=== PATIENT | female | born 1975 | race Caucasian/White ===

== ENCOUNTER 2016-04-11 22:42 | Emergency (ER) | payer BC ==
[~2016-04-11] VITALS: Ht 160 cm; Wt 124.0 kg
[2016-04-11 22:46] VITALS: BP 180/95; PULSE 98; RESP 14; TEMP 98.5; O2SAT 95
[2016-04-11 23:31] LABS: BLOOD, URINE LARGE (NEG); GLUCOSE,URINE NEG (NEG); KETONE, URINE NEG (NEG); NITRITE,URINE NEG (NEG); PH, URINE 5.5 (5.0-8.5); RENAL EPITHELIAL CELLS 6 /hpf; SQUAMOUS EPITHELIAL CELL URINE 1 /hpf (0-5); URINE COLOR YELLOW (YELLW/STRAW)
[2016-04-11 23:36] LABS: COMMENT (UR) CULTURE INDICATED; CULTURE IF INDICATED CULTURE INDICATED
[2016-04-11] MEDS ORDERED: CIPR-9 PO (23:52)
[2016-04-11] MEDS ORDERED: PYRI200T4 PO (23:52)
--- NOTE | 2016-04-11 23:58 | PD ---
HPI Chief Complaint: Complaint Time Seen by Provider: 23:52 Travel History International Travel<30 days: No Contact w/Intl Traveler<30days: No Traveled to known affect area: No History of Present Illness HPI 40-year-old white female presents to the department with a one-day history of increasing frequency and dysuria. She has some lower bladder pressure. She denies any fever or chills. No nausea vomiting. No back pain. No vaginal complaints. She does make note that she had a small amount of blood when she wiped. [facility] Past Medical History Medical History: Denies Significant Hx Tetanus Vaccination: < 5 Years ?: Not Past Surgical History Surgical History: No Previous Surgery Social History Alcohol Use: Yes Tobacco Use: No Allergies-Medications (Allergen,Severity, Reaction): Coded Allergies: Bactrim (Verified Allergy, Mild, HIVES, 04/11/16) Codeine (Verified Allergy, Mild, HIVES, 04/11/16) Keflex (Verified Allergy, Mild, HIVES, 04/11/16) Minocycline (Verified Allergy, Mild, HIVES, 04/11/16) Sulfa (Verified Allergy, Mild, HIVES, 04/11/16) Tetracycline (Verified Allergy, Mild, HIVES, 04/11/16) Reported Meds & Prescriptions Reported Meds & Active Scripts Active No Active Prescriptions or Reported Medications Review of Systems Except as stated in HPI: all other systems reviewed are Neg Physical Exam Narrative GENERAL: Well-developed, well-nourished in no acute distress. Nontoxic appearing. HEAD: Normocephalic, atraumatic. EYES: Pupils equal round and reactive. Extraocular motions intact. No scleral icterus. No injection or drainage. ENT: TMs clear without erythema. The external auditory canals clear. Nose: clear . Posterior pharynx is pink and moist. No tonsillar edema or exudate. Uvula midline. Airway patent. NECK: Trachea midline.Supple, nontender, moves head freely. No central bony tenderness or spasm. CARDIOVASCULAR: Regular rate and rhythm without murmurs, gallops, or rubs. RESPIRATORY: Clear to auscultation. Breath sounds equal bilaterally. No wheezes , rales, or rhonchi. GASTROINTESTINAL: Abdomen soft, non-tender, nondistended. No hepato-splenomegaly , or palpable masses. No guarding. EXTREMITIES: No clubbing, cyanosis, or edema. No joint tenderness, effusion, or edema noted. BACK: Nontender without deformity or crepitance. No flank tenderness. Data Data Last Documented VS Vital Signs Date Time Temp Pulse Resp B/P Pulse Ox O2 Delivery O2 Flow Rate FiO2 04/11/16 22:46 98.5 98 14 180/95 95 Room Air Orders Urinalysis - C+S If Indicated (04/11/16 22:54) Urine Culture (04/11/16 23:01) Ciprofloxacin (Cipro) (04/12/16 00:00) Phenazopyridine (Pyridium) (04/12/16 00:00) Labs Laboratory Tests Test 04/11/16 23:01 Urine Color YELLOW Urine Turbidity HAZY Urine pH 5.5 Urine Specific Cash 1.017 Urine Protein 30 mg/dL Urine Glucose (UA) NEG mg/dL Urine Ketones NEG mg/dL Urine Occult Blood LARGE Urine Nitrite NEG Urine Bilirubin NEG Urine Urobilinogen LESS THAN 2.0 MG/DL Urine Leukocyte Esterase LARGE Urine RBC /hpf Urine WBC /hpf Urine Squamous Epithelial 1 /hpf Cells Urine Renal Epithelial Cells 6 /hpf Microscopic Urinalysis Comment CULTURE INDICATED MDM Medical Decision Making Medical Screen Exam Complete: Yes Emergency Medical Condition: Yes Medical Record Reviewed: Yes Interpretation(s) Laboratory Tests Test 04/11/16 23:01 Urine Color YELLOW Urine Turbidity HAZY Urine pH 5.5 Urine Specific Cash 1.017 Urine Protein 30 mg/dL Urine Glucose (UA) NEG mg/dL Urine Ketones NEG mg/dL Urine Occult Blood LARGE Urine Nitrite NEG Urine Bilirubin NEG Urine Urobilinogen LESS THAN 2.0 MG/DL Urine Leukocyte Esterase LARGE Urine RBC /hpf Urine WBC /hpf Urine Squamous Epithelial 1 /hpf Cells Urine Renal Epithelial Cells 6 /hpf Microscopic Urinalysis Comment CULTURE INDICATED Differential Diagnosis Differential diagnoses: UTI, polynephritis, vaginitis Narrative Course Patient has a UTI. She is given Cipro 500 and Pyridium 200 mg by mouth Diagnosis Primary Impression: UTI (urinary tract infection) Patient Instructions: General Instructions Additional Instructions: Rest. Increase fluids. Cipro and Pyridium. Follow-up with a primary care doctor in one week. Return to the ER for any problems. Med/Other Pt SpecificInfo: Prescription(s) given Scripts Phenazopyridine (Pyridium)200 Mg [id number] Mg PO Q8H PRN (DYSURIA) #9 TAB Prov:Mervin Chow MD 04/11/16 Ciprofloxacin (Cipro)500 Mg [id number] Mg PO BID #14 TAB Prov:Mervin Chow MD 04/11/16 Disposition: 01 DISCHARGE HOME Condition: Stable Allan Hudson Apr 11, 2016 23:58
[2016-04-12] MEDS ORDERED: PHENAZOPYRIDINE HCL 200 MG TAB PO ONE
[2016-04-12] MEDS ORDERED: CIPROFLOXACIN 500 MG TAB PO ONE
[2016-04-12] MEDS ORDERED: LACTCAP8 PO (00:18)
[2016-04-12] MEDS ORDERED: LEVOTAB PO (00:18)
[2016-04-12] MEDS ORDERED: SUDO4TAB PO (00:18)
[2016-04-12] MEDS ORDERED: MULT-120 PO (00:18)
== END 2016-04-12 00:46 | disposition home or self-care (01) ==
LOC: NEPB 22:42
DX: N39.0 Urinary tract infection, site not specified (principal); B96.20 Unspecified Escherichia coli [E. coli] as the cause of diseases classified elsewhere
CPT/HCPCS: 81001; 87077; 87086; 87186; 99283